=== PATIENT | female | born 1985 | race Caucasian/White ===

== ENCOUNTER 2019-10-10 08:22 | Day surgery (SDC) | payer MEDICAID ==
[~2019-10-10] VITALS: Ht 154.9 cm; Wt 79.4 kg
[~2019-10-10 08:22] MED LIST: BUPIVACAINE /EPINEPHRINE/PF 0.5% 30 ML VIAL INJ ONE; CEFAZOLIN 1 GM IVPB PREMIX 50 ML IV ONE; GLYCOPYRROLATE 0.2 MG/ML VIAL IJ ONE; LR 1,000 ML IV.SOLN IV ONE; MIDAZOLAM HCL 5 MG/5 ML VIAL IVP ONE; NEOSTIGMINE METHYLSULFATE 1 MG/ML, 10 ML VIAL IVP ONE; NS IRRIG SOLN 1000 ML IR ONE; ONDANSETRON HCL 4 MG/2 ML VIAL IVP ONE; PROPOFOL 200MG/ 20ML VIAL (DIPRIVAN) IV ONE; ROCURONIUM BROMIDE 10 MG/ML (ZEMURON) IV ONE; SEVOFLURANE 15 MIN GAS INH ONE; fentaNYL CITRATE/PF 100 MCG/2 ML AMP IVP ONE
[2019-10-10] MEDS ORDERED: LR 1,000 ML IV SCH (13:06)
[2019-10-10] MEDS ORDERED: METOCLOPRAMIDE HCL 10 MG/2 ML VIAL IVP PRN (13:15)
[2019-10-10] MEDS ORDERED: MORPHINE 4 MG/ML INJ. SYRINGE IVP PRN ×3 (13:15)
[2019-10-10] MEDS ORDERED: ACETAMINOPHEN 500 MG TABLET PO ONE (14:30)
[2019-10-10] MEDS ORDERED: ACETAMINOPHEN 500 MG TABLET ONE (14:31)
[2019-10-10 15:07] VITALS: BP_SYST 116
== END 2019-10-10 15:45 | disposition home or self-care (01) ==
LOC: SMU 08:22 → SDS 08:22
PROVIDERS: ATTEND Obstetrics & Gynecology
DX: Z30.2 Encounter for sterilization (principal); E66.3 Overweight; Z91.010 Allergy to peanuts; Z91.038 Other insect allergy status
CPT/HCPCS: 58670; C1727; J0690; J2250; J2405; J2704; J2710; J3010; J3490 ×2; J7120 ×2